=== PATIENT | female | born 1995 | race African-American/Black ===

== ENCOUNTER 2021-02-01 15:09 | Emergency (ER) | payer OTHER ==
[~2021-02-01] VITALS: Ht 167.6 cm; Wt 90.7 kg
[2021-02-01 16:10] VITALS: BP 143/81; TEMP 98.2
== END 2021-02-01 16:10 | disposition home or self-care (01) ==
LOC: ED 15:09
DX: K21.9 Gastro-esophageal reflux disease without esophagitis (principal); Z3A.21 21 weeks gestation of pregnancy
CPT/HCPCS: 81000; 99284